=== PATIENT | male | born 1975 | race Caucasian/White ===

== ENCOUNTER 2022-09-06 22:42 | Emergency (ER) | payer MEDICAID ==
[~2022-09-06] VITALS: Ht 175.3 cm; Wt 113.4 kg
[2022-09-06 23:00] VITALS: BP_SYST 129
--- NOTE | 2022-09-06 23:00 | NUR ---
PT FROM HOME WITH C/O RIGHT ANKLE PAIN 04/15. PT DENIES RECENT INJURY BUT PT HAS HISTORY OF RIGHT ANKLE INJURY.
--- NOTE | 2022-09-06 23:50 | NUR ---
DR. CHILEL WITH PATIENT IN TRIAGE FOR MSE.
[2022-09-07] MEDS ORDERED: ACET-2439 PO
[2022-09-07] MEDS ORDERED: NAPR-690 PO
[2022-09-07 00:19] VITALS: BP_SYST 129
--- NOTE | 2022-09-07 00:19 | NUR ---
Patient given written and verbal discharge instructions and verbalizes understanding. ER DR. CHILEL discussed with patient the results and treatment provided. Patient in stable condition. ID arm band removed. Patient educated on pain management and to follow up with PMD. Pain Scale 0. Opportunity for questions provided and answered. Medication side effect fact sheet provided.
== END 2022-09-07 00:19 | disposition home or self-care (01) ==
LOC: SED 22:42
DX: M13.871 Other specified arthritis, right ankle and foot (principal); Z79.899 Other long term (current) drug therapy
CPT/HCPCS: 99281; 99282

== ENCOUNTER 2022-10-31 19:24 | Emergency (ER) | payer MEDICAID ==
[~2022-10-31] VITALS: Ht 175.3 cm; Wt 108.9 kg
[~2022-10-31 19:24] MED LIST: ACET-2439 PO; NAPR-690 PO
[2022-10-31 19:43] VITALS: BP_SYST 140
[2022-10-31] MEDS ORDERED: DICL20GE TP (21:20)
[2022-10-31 21:30] VITALS: BP_SYST 139
== END 2022-10-31 21:30 | disposition home or self-care (01) ==
LOC: SED 19:24
DX: M25.571 Pain in right ankle and joints of right foot (principal); G89.29 Other chronic pain; Z98.890 Other specified postprocedural states; Z79.899 Other long term (current) drug therapy
CPT/HCPCS: 99281